=== PATIENT | male | born 1990 | race American Indian/Alaskan Native ===

== ENCOUNTER 2019-12-19 10:59 | Emergency (ER) | payer OTHER ==
[2019-12-19 11:36] VITALS: BP 132/81
--- NOTE | 2019-12-19 11:46 | Event Note ---
ED Screening Note Date of service: 12/19/19 Time: 11:40 ED Screening Note: 29 y o male presents for testicular pain intermittent only on left side x 2 year. Patient states only experiencing left-sided testicular discomfort that radiates all ports to his back. 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 Patient denies any problems urinating or using bowel movement. denies penile d/c, dysuria, swelling, fever, chills, nausea vomiting or abdominal pain Abdomen: Nontender, no mass, no abnormal findings Initial orders include: Urology referral given Vital signs are normal patient is in no acute distress. Examination normal. Patient is in no discomfort during the ED stay. Patient states that he will follow-up with the urology as discussed. At this time patient will be discharged with instructions and referral to follow-up
== END 2019-12-19 12:00 | disposition left against medical advice (07) ==
LOC: ED 10:59
DX: R10.2 Pelvic and perineal pain (principal); Z53.21 Procedure and treatment not carried out due to patient leaving prior to being seen by health care provider